=== PATIENT | male | born 2000 | race African-American/Black ===

== ENCOUNTER 2018-05-03 05:25 | Emergency (ER) | payer OTHER, MEDICAID, BC ==
[2018-05-03 05:40] VITALS: RESP 18; TEMP 98.4
--- NOTE | 2018-05-03 06:05 | ED ---
General Adult HPI - General Chief complaint: Dizziness Stated complaint: dizziness,gas exposure Time Seen by Provider: 05/03/18 06:03 Source: patient, family Mode of arrival: wheelchair Limitations: no limitations - History of Present Illness Initial comments: Ryley is a relatively healthy 18-year-old -[place] male who is brought to the ED today for evaluation of headache, lightheadedness after being exposed to natural gas. Patient reports that he was at work and a [employer] factory when multiple people "smell with the believed was natural gas. Patient reports that the [employer] was notified of this and did come out to investigate. Patient reports that while he was at work he began to feel lightheaded and like he had a headache at which time he decided to leave work and return home. At time his family encouraged him to come to the ER for further evaluation. Patient is uncertain what type of natural gas he was exposed to but states that he could smell it and they believed it was from a leaking gas line. He is uncertain if other people at his work have similar symptoms. He does report that since leaving work and come into hospital he is feeling significantly improved. - Related Data Home Medications Medication Instructions Recorded Confirmed No Known Home Medications 05/01/16 05/03/18 Allergies Allergy/AdvReac Type Severity Reaction Status Date / Time peanut Allergy Unknown Verified 05/03/18 05:40 soy Allergy Unknown Verified 05/03/18 05:40 Review of Systems ROS Statement: Those systems with pertinent positive or pertinent negative responses have been documented in the HPI. ROS Other: All systems not noted in ROS Statement are negative. Past Medical History Past Medical History: No Reported History History of Any Multi-Drug Resistant Organisms: None Reported Past Surgical History: Tonsillectomy Past Psychological History: No Psychological Hx Reported Smoking Status: Never smoker Past Alcohol Use History: Occasional Past Drug Use History: None Reported General Exam - General Exam Comments Initial Comments: Physical Exam GENERAL: Patient is well-developed and well-nourished. Patient is nontoxic and well- hydrated and is in no distress. HENT: Normocephalic, Atraumatic. EYES: PERRL, EOMI PULMONARY: Unlabored respirations. No audible rales rhonchi or wheezing was noted. CARDIOVASCULAR: There is a regular rate and rhythm without any murmurs gallops or rubs. ABDOMEN: Soft and nontender with normal bowel sounds. SKIN: Skin is clear with no lesions or rashes and otherwise unremarkable. : Deferred NEUROLOGIC: Patient is alert and oriented x3. Moving all extremities spontaneously MUSCULOSKELETAL: Normal extremities with adequate strength and full range of motion. No lower extremity swelling or edema. No calf tenderness. PSYCHIATRIC: Normal psychiatric evaluation. Limitations: no limitations Limitations: no limitations Course Vital Signs 05/03/18 05/03/18 05/03/18 05:36 06:53 07:40 Temperature 98.4 F Pulse Rate 83 59 L 84 Respiratory 18 18 18 Rate Blood Pressure 139/91 135/80 134/73 O2 Sat by Pulse 98 100 100 Oximetry Medical Decision Making - Medical Decision Making Patient was seen and evaluated history was obtained from the patient Labs ordered Patient was placed on 2 L nasal cannula Labs with no significant abnormalities carboxy hemoglobin is normal, VBG is normal Patient was reevaluated after labs resulted in was sleeping comfortably. He reports his headache is completely resolved is feeling quite well at this time. Patient states he feels comfortable with the plan to sleep throughout the day today and go back to work tonight as scheduled. All questions pertaining care were answered best my ability return parameters were discussed the patient was discharged home in stable condition - Lab Data Result diagrams: 05/03/18 05:59 05/03/18 05:59 Lab Results 05/03/18 05/03/18 05/03/18 Range/Units 05:59 05:59 05:59 WBC 6.7 (4.0-11.0) k/uL RBC 5.13 (4.30-5.90) m/uL Hgb 15.0 (13.0-17.5) gm/dL Hct 45.4 (39.0-53.0) % MCV 88.5 (80.0-100.0) fL MCH 29.2 (25.0-35.0) pg MCHC 33.0 (31.0-37.0) g/dL RDW 13.7 (11.5-15.5) % Plt Count 202 (150-450) k/uL Neutrophils % 62 % Lymphocytes % 27 % Monocytes % 5 % Eosinophils % 5 % Basophils % 0 % Neutrophils # 4.1 (1.3-7.7) k/uL Lymphocytes # 1.8 (1.0-4.8) k/uL Monocytes # 0.3 (0-1.0) k/uL Eosinophils # 0.3 (0-0.7) k/uL Basophils # 0.0 (0-0.2) k/uL VBG pH 7.38 (7.31-7.41) VBG pCO2 43 (37-51) mmHg VBG HCO3 25 (24-28) mmol/L Carbon Monoxide, Quant 1.4 (<10.0) % Sodium 141 (137-145) mmol/L Potassium 4.5 (3.5-5.1) mmol/L Chloride 106 (98-107) mmol/L Carbon Dioxide 25 (22-30) mmol/L Anion Gap 10 mmol/L BUN 16 (9-20) mg/dL Creatinine 0.93 (0.66-1.25) mg/dL Est GFR (CKD-EPI)AfAm >90 (>60 ml/min/1.73 sqM) Est GFR (CKD-EPI)NonAf >90 (>60 ml/min/1.73 sqM) Glucose 101 H (74-99) mg/dL Calcium 9.7 (8.4-10.2) mg/dL Total Bilirubin 0.6 (0.2-1.3) mg/dL AST 31 (17-59) U/L ALT 32 (21-72) U/L Alkaline Phosphatase 65 (38-126) U/L Total Protein 7.4 (6.3-8.2) g/dL Albumin 4.4 (3.5-5.0) g/dL Disposition Clinical Impression: Exposure to natural gas Disposition: HOME SELF-CARE Condition: Good Instructions: How Your Lungs Work (ED) Is patient prescribed a controlled substance at d/c from ED?: No Referrals: Vineet Soto MD [Primary Care Provider] - 1-2 days Time of Disposition: 06:51
[2018-05-03 06:31] LABS: Basophils % (A) 0 %; Eosinophils # (A) 0.3 k/uL (0-0.7); Eosinophils % (A) 5 %; HCT 45.4 % (39.0-53.0); Lymphocytes # (A) 1.8 k/uL (1.0-4.8); Lymphocytes % (A) 27 %; MCH 29.2 pg (25.0-35.0); MCV 88.5 fL (80.0-100.0); Mean Platelet Volume 7.6; Monocytes # (A) 0.3 k/uL (0-1.0); Monocytes % (A) 5 %; Neutrophils # (A) 4.1 k/uL (1.3-7.7); Neutrophils % (A) 62 %; Platelet Count 202 k/uL (150-450); RBC 5.13 m/uL (4.30-5.90); RDW 13.7 % (11.5-15.5); WBC 6.7 k/uL (4.0-11.0)
[2018-05-03 06:33] LABS: Carbon Monoxide 1.4 % (<10.0); VBG PH 7.38 (7.31-7.41)
[2018-05-03 06:46] LABS: ALT 32 U/L (21-72); AST 31 U/L (17-59); Albumin 4.4 g/dL (3.5-5.0); Alkaline Phosphatase 65 U/L (38-126); Anion Gap 10 mmol/L; Blood Urea Nitrogen 16 mg/dL (9-20); Calcium 9.7 mg/dL (8.4-10.2); Carbon Dioxide 25 mmol/L (22-30); Chloride 106 mmol/L (98-107); Glucose 101 mg/dL (74-99); Potassium 4.5 mmol/L (3.5-5.1); Sodium 141 mmol/L (137-145); Total Bilirubin 0.6 mg/dL (0.2-1.3); Total Protein 7.4 g/dL (6.3-8.2)
[2018-05-03 07:40] VITALS: BP 134/73; PULSE 84
== END 2018-05-03 07:40 | disposition home or self-care (01) ==
LOC: EC 05:25
DX: T75.89XA Other specified effects of external causes, initial encounter (principal); Z91.010 Allergy to peanuts; Z91.018 Allergy to other foods; Y92.69 Other specified industrial and construction area as the place of occurrence of the external cause; Y99.0 Civilian activity done for income or pay
CPT/HCPCS: 36415; 80053; 82375; 82803; 85025; 99284

== ENCOUNTER → 2019-04-29 | Outpatient (CLI) | payer MEDICAID, BC ==
--- NOTE | 2019-04-30 10:39 | ECHOF ---
Referral Reason:[id number] MEASUREMENTS -------- HEIGHT: 170.2 cm WEIGHT: 78.0 kg BP: RVIDd: 4.2 cm (< 3.3) IVSd: 0.9 cm (0.6 - 1.1) LVIDd: 4.2 cm (3.9 - 5.3) LVPWd: 1.3 cm (0.6 - 1.1) IVSs: 1.4 cm LVIDs: 3.4 cm LVPWs: 1.7 cm LAESV Index (A-L): 21.19 ml/m IVSd: 1.2 cm (0.6 - 1.1) LVIDd: 5.1 cm (3.9 - 5.3) LVPWd: 1.4 cm (0.6 - 1.1) IVSs: 1.9 cm LVIDs: 3.6 cm LVPWs: 1.6 cm EDV(Teich): 124 ml ESV(Teich): 56 ml EF(Teich): 55 % %FS: 29 % SV(Teich): 68 ml Ao Diam: 3.2 cm (2.0 - 3.7) AV Cusp: 1.7 cm (1.5 - 2.6) LA Diam: 2.8 cm (2.7 - 3.8) MV EXCURSION: 20.499 mm (> 18.000) MV EF SLOPE: 122 mm/s (70 - 150) EPSS: 1.1 cm MV E Rohan: 0.98 m/s MV DecT: 152 ms MV A Rohan: 0.52 m/s MV E/A Ratio: 1.86 RAP: 5.00 mmHg RVSP: 26.47 mmHg FINDINGS -------- Sinus rhythm. This was a technically good study. The left ventricular size is normal. Left ventricular wall thickness is normal. Overall left vent ricular systolic function is low-normal with, an EF between 50 - 55 %. abnormal septal motion The right ventricle is moderately enlarged. Normal LA size by volume 22+/-6 ml/m2. The right atrium is mildly enlarged. Interatrial and interventricular septum intact. There is no evidence of aortic regurgitation. There is no evidence of aortic stenosis. There is trace mitral regurgitation. Mild tricuspid regurgitation present. There is no evidence of pulmonary hypertension. The right v entricular systolic pressure, as measured by Doppler, is 26.47mmHg. There is no pulmonic regurgitation present. The aortic root size is normal. Normal inferior vena cava with normal inspiratory collapse consistent with estimated right atrial pre ssure of 5 mmHg. There is no pericardial effusion. CONCLUSIONS -------- 1. Sinus rhythm. 2. This was a technically good study. 3. The left ventricular size is normal. 4. Left ventricular wall thickness is normal. 5. Overall left ventricular systolic function is low-normal with, an EF between 50 - 55 %. 6. The right ventricle is moderately enlarged. 7. Normal LA size by volume 22+/-6 ml/m2. 8. The right atrium is mildly enlarged. 9. Interatrial and interventricular septum intact. 10. There is no evidence of aortic regurgitation. 11. There is no evidence of aortic stenosis. 12. There is trace mitral regurgitation. 13. Mild tricuspid regurgitation present. 14. There is no evidence of pulmonary hypertension. 15. The right ventricular systolic pressure, as measured by Doppler, is 26.47mmHg. 16. There is no pulmonic regurgitation present. 17. The aortic root size is normal. 18. Normal inferior vena cava with normal inspiratory collapse consistent with estimated right atrial pressure of 5 mmHg. 19. There is no pericardial effusion. FUR LINER: Bindu Moore RDCS
== END | disposition home or self-care (01) ==
LOC: RADECHMAIN 16:38
PROVIDERS: ATTEND Family Medicine
DX: I07.1 Rheumatic tricuspid insufficiency (principal); Z91.02 Food additives allergy status
CPT/HCPCS: 93306

== ENCOUNTER → 2019-05-09 | Outpatient (CLI) | payer MEDICAID, BC ==
--- NOTE | 2019-05-14 09:47 | HM ---
HOLTER MONITOR REPORT 24-HOUR HOLTER MONITOR: DATE OF SERVICE: 05/09/2019 The patient was monitored for 24 hours. The baseline rhythm appeared to be a sinus mechanism with a minimum heart rate of 52 beats per minute, max heart rate 168 beats per minute, average heart rate of 81 beats per minute. Supraventricular ectopic events were not seen. No evidence of sinus pause or sinus arrest. The patient reported no symptoms. CONCLUSION: 1. Sinus rhythm as a baseline mechanism. 2. Rare ventricular ectopic events. 3. Rare supraventricular ectopic events. 4. No evidence of sinus pause or sinus arrest. 5. No evidence of any advanced AV block. 6. No diary of symptoms were attached to the study. MMODL / IJN: [id number] /
== END | disposition home or self-care (01) ==
LOC: RADECHMAIN 12:37
PROVIDERS: ATTEND Nurse Practitioner Family
DX: I49.3 Ventricular premature depolarization (principal); Z91.010 Allergy to peanuts
CPT/HCPCS: 93225; 93226